=== PATIENT | male | born 1970 | race American Indian/Alaskan Native ===

== ENCOUNTER 2017-08-24 20:31 | Inpatient (IN) | payer BC ==
[2017-08-24] MEDS ORDERED: TORADOL IV ONE (20:58)
--- NOTE | 2017-08-24 21:03 | Emergency Department Report ---
Minor Respiratory <UMM HAN - Last Filed: 08/24/17 23:10> - HPI Duration: 3 Days Minor Respiratory: Yes Able to Tolerate Fluids, Yes Chest Pain, Yes Fever (101) , No Rhinorrhea, No Sore Throat, No Ear Pain, No Cough, No Sick Contacts, No Hemoptysis, No Shortness of Breath Other History: Patient is a 47-year-old male who is presenting with a right-sided chest pain. Patient states that he helped move a refrigerator several days ago and initially thought he had pulled a muscle in the right chest however he states that now he has some very mild shortness of breath and pain when he breathes. Patient had a low-grade temperature yesterday but none today. Patient also states he started having some mild sore throat yesterday which is now improved. Patient denies any headache nausea vomiting diarrhea or sore throat. <PEPE MAY - Last Filed: 08/30/17 21:48> - HPI Chief Complaint: Upper Respiratory Infection Stated Complaint: SHORT PAIN Time Seen by Provider: 08/24/17 20:58 ED Review of Systems ROS: Stated complaint: SHORT PAIN Other details as noted in HPI <UMM HAN - Last Filed: 08/24/17 23:10> ROS: Stated complaint: SHORT PAIN Other details as noted in HPI Constitutional: denies: chills, fever Eyes: denies: eye pain, eye discharge, vision change ENT: denies: ear pain, throat pain Respiratory: denies: cough, shortness of breath, wheezing Cardiovascular: denies: chest pain, palpitations Endocrine: no symptoms reported Gastrointestinal: denies: abdominal pain, nausea, diarrhea Genitourinary: denies: urgency, dysuria Musculoskeletal: denies: back pain, joint swelling, arthralgia Skin: denies: rash, lesions Neurological: denies: headache, weakness, paresthesias Psychiatric: denies: anxiety, depression Hematological/Lymphatic: denies: easy bleeding, easy bruising <PEPE MAY Last Filed: 08/30/17 21:48> ED Past Medical Hx <UMM HAN - Last Filed: 08/24/17 23:10> - Past Medical History Additional medical history: gout - Social History Smoking Status: Current Every Day Smoker Substance Use Type: None <PEPE MAY Last Filed: 08/30/17 21:48> - Medications Home Medications: Home Medications Medication Instructions Recorded Confirmed Last Taken Type Ibuprofen [Motrin 200 MG tab] 400 mg PO Q8H PRN 08/25/17 08/25/17 08/24/17 History Apixaban [Eliquis] 10 mg PO Q12HR #60 tablet 08/27/17 Unknown Rx Minor Respiratory Exam - Exam General: Vital signs noted. No distress. Alert and acting appropriately. Neurologic: Alert and oriented, no deficits. Musculoskeletal: Unremarkable. <UMM HAN - Last Filed: 08/24/17 23:10> - Exam General: Vital signs noted. No distress. Alert and acting appropriately. HEENT: Yes Moist Mucous Membranes, No Pharyngeal Erythema, No Pharyngeal Exudates, No Rhinorrhea, No Conjuctival Injection, No Frontal Tenderness, No Maxillary Tenderness Ear: Neither TM Bulge, Neither TM Erythema, Neither EAC Pain, Neither EAC Discharge Neck: Yes Supple, No Adenopathy Lungs: Yes Good Air Exchange, Yes Ronchi (right posterior base), No Wheezes, No Stridor, No Cough, No Labored Respirations, No Retractions, No Use of Accessory Muscles, No Other Abnormal Lung Sounds Heart: Yes Regular, No Murmur Abdomen: Yes Normal Bowel Sounds, No Tenderness, No Peritoneal Signs Skin: No Rash, No Edema Neurologic: Alert and oriented, no deficits. Musculoskeletal: Unremarkable. <PEPE MAY - Last Filed: 08/30/17 21:48> ED Course Vital Signs 08/24/17 20:47 Temperature 97.8 F Pulse Rate 80 Respiratory 18 Rate Blood Pressure 123/85 O2 Sat by Pulse 100 Oximetry - Reevaluation(s) Reevaluation #2: 08/24/17 22:01 Patient with elevated d-dimer, elevated white blood cell and abnormal chest x- ray. CTA and CO2 be done. Reevaluation #3: 08/24/17 23:[address] and she'll and radiologist called to inform the patient with bilateral PE with pulmonary infarct secondary to PE. Patient is stable. He is currently getting IV fluid he was started on IV sauce then empirically for infection. I spoke with Dr. May regarding patient and care of patient will be given over 2 Dr. Wall. <UMM HAN - Last Filed: 08/24/17 23:10> Vital Signs 08/24/17 20:47 Temperature 97.8 F Pulse Rate 80 Respiratory 18 Rate Blood Pressure 123/85 O2 Sat by Pulse 100 Oximetry - Reevaluation(s) Reevaluation #1: 08/24/17 21:03 Patient is a 47-year-old -[place] male who presented with right-sided chest discomfort with breathing. Patient does have some minor rhonchi in the right posterior base. X-ray will be done to rule out pneumonia. Pleuritic component patient also will have a d-dimer EKG done as well. <PEPE MAY - Last Filed: 08/30/17 21:48> ED Medical Decision Making - Lab Data Result diagrams: 08/24/17 21:04 08/24/17 21:04 <UMM HAN - Last Filed: 08/24/17 23:10> - Lab Data Result diagrams: 08/26/17 05:48 08/26/17 05:48 <PEPE MAY - Last Filed: 08/30/17 21:48> Critical care attestation.: If time is entered above; I have spent that time in minutes in the direct care of this critically ill patient, excluding procedure time. <UMM HAN - Last Filed: 08/24/17 23:10> Critical care attestation.: If time is entered above; I have spent that time in minutes in the direct care of this critically ill patient, excluding procedure time. <PEPE MAY - Last Filed: 08/30/17 21:48> ED Disposition <UMM HAN - Last Filed: 08/24/17 23:10> Is pt being admited?: Yes Does the pt Need Aspirin: No <PEPE MAY - Last Filed: 08/30/17 21:48> Clinical Impression: Pulmonary embolism and infarction Disposition: OP ADMIT IP TO THIS HOSP Condition: Stable
[2017-08-24 21:15] LABS: Basophils # (Auto) 0.1 K/mm3 (0.0-0.1); Basophils % (Auto) 0.4 % (0.0-1.8); Eosinophils # (Auto) 0.1 K/mm3 (0.0-0.4); Eosinophils % (Auto) 0.7 % (0.0-4.3); Hematocrit 42.8 % (35.5-45.6); Hemoglobin 14.1 gm/dl (11.8-15.2); Lymphocytes # (Auto) 1.6 K/mm3 (1.2-5.4); Lymphocytes % (Auto) 8.4 % (13.4-35.0); Mean Corpuscular HGB Conc 33 % (32-34); Mean Corpuscular Hemoglobin 30 pg (28-32); Mean Corpuscular Volume 91 fl (84-94); Monocytes % (Auto) 10.3 % (0.0-7.3); Platelet Count 205 K/mm3 (140-440); Red Blood Count 4.73 M/mm3 (3.65-5.03); Red Cell Distribution Width 13.5 % (13.2-15.2)
[2017-08-24 21:34] LABS: BUN/Creatinine Ratio 27; Blood Urea Nitrogen 16 mg/dL (9-20); Calcium 8.8 mg/dL (8.4-10.2); Hemolysis Index 14
--- NOTE | 2017-08-24 21:49 | XRay Report ---
FINAL REPORT PROCEDURE: XR CHEST ROUTINE 2V TECHNIQUE: PA and lateral chest radiographs were obtained. CPT 14845 HISTORY: cough COMPARISON: No prior studies are available for comparison. FINDINGS: Heart size and pulmonary vasculature appear normal. There are abnormal densities visualized in the lateral 3rd of the right lung. These appear to be visualized in the posterior aspect of the right upper lobe also in the right middle lobe superior laterally and inferiorly. These may represent multifocal infiltrates. The density located in the left upper lobe is somewhat oval measuring 3.6 x 2.2 centimeters. Linear band of atelectasis suspected in the left base. Lungs otherwise are clear. No effusions are seen. No acute bony abnormalities are visualized. IMPRESSION: Abnormal densities visualize right lung as described. Clinical correlation is recommended. If there are signs of pneumonia I would recommend treating for pneumonia and repeating the chest x-ray after adequate treatment to ensure these densities resolve and there are no underlying masses. If there is no evidence of pneumonia I would consider CT of the chest to ensure no pulmonary nodules are present.
[2017-08-24] MEDS ORDERED: NACL 0.9% 1000 ML 1,000 ML IV ONE (22:18)
[2017-08-24] MEDS ORDERED: XOPENEX IH ONE (22:30)
[2017-08-24] MEDS ORDERED: ATROVENT IH ONE (22:30)
[2017-08-24] MEDS ORDERED: ZOSYN/NS 4.5GM/100ML 4.5 GM/100 ML VIAL IV SCH (23:00)
--- NOTE | 2017-08-24 23:14 | Cat Scan Report ---
FINAL REPORT PROCEDURE: CT ANGIO CHEST TECHNIQUE: Computerized tomographic angiography of the chest was performed during the IV injection of iodinated nonionic contrast including image processing. The image data was postprocessed using 2-dimensional multiplanar reformatted (MPR) and 3-dimensional (MIP and/or volume rendered) techniques. HISTORY: sob/cp COMPARISON: No prior studies are available for comparison. FINDINGS: Pulmonary outflow tract, right and left main pulmonary arteries and their proximal branches: There are moderate-sized filling defects visualized in the proximal end of the right lower lobe pulmonary artery and in several of their branches extending more peripherally. Similar finding seen in the right upper lobe branches and also in the right middle lobe. Small to moderate filling defects visualized in branches of the left lower lobe pulmonary artery and also in the lingula. Pericardium: No evidence of pericardial effusion. Thoracic aorta: No evidence of aneurysmal dilatation or dissection. Coronary arteries: Are unremarkable. Mediastinum and hilar regions: Nonspecific subcentimeter lymph nodes are visualized. No pathologically enlarged lymph nodes or masses are identified. Lung Maloney: There is dense consolidation in the central aspect of the right middle lobe extending superiorly and anteriorly. There is a pleural-based peripheral density in the superior segment of the right lower lobe posteriorly extending over approximately 5.2 centimeters. Given the multiple moderate-sized pulmonary emboli visualized the appearance is suggestive of pulmonary infarctions. No effusions are seen. There also a linear band of increased density in the right lower lobe posteriorly inferiorly. Linear bands of atelectasis are also seen in the left lung base. Upper abdomen: No acute or focal abnormality is seen. Other: None IMPRESSION: Moderate volume of pulmonary emboli seen on the right as described. Small to moderate volume of pulmonary embolize seen on the left as described. Peripheral parenchymal densities in the right lung as described suggest pulmonary infarction related to the pulmonary emboli. Critical value: These findings were discussed in detail with NIKOLAS Crump on 08/24/2017 at 11:02 p.m. Eastern standard time. She informs me the attending physician will be notified immediately.
--- NOTE | 2017-08-24 23:38 | Emergency Department Report ---
ED Shortness of Breath HPI - General Chief Complaint: Upper Respiratory Infection Stated Complaint: SHORT PAIN Time Seen by Provider: 08/24/17 20:58 Source: patient Mode of arrival: Ambulatory Limitations: No Limitations - History of Present Illness Initial Comments: This is a pleasant 47-year-old gentleman who is a smoker who apparently began having right-sided chest pain roughly 4 days ago. He states that he was helping a friend move a refrigerator several days ago and thought that he might have pulled a muscle. He states that the sensation in the right anterior lower chest feels like gas. He did not think much of it until he began to have a low- grade temperature yesterday. He also states that he had a sore throat but this Better. His left calf muscle has been sore over the past several days as well. 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 She states that it is difficult to find his pulses in his feet bilaterally. MD Complaint: shortness of breath -: Gradual, days(s) (4) Radiation: back Severity: moderate Consistency: constant Improves With: nothing Worsens With: nothing Associated Symptoms: fever, cough Treatments Prior to Arrival: none - Related Data Allergies Allergy/AdvReac Type Severity Reaction Status Date / Time No Known Allergies Allergy Verified 08/24/17 22:23 ED Review of Systems ROS: Stated complaint: SHORT PAIN Other details as noted in HPI Constitutional: fever. denies: chills Eyes: denies: eye pain, eye discharge, vision change ENT: denies: ear pain, throat pain Respiratory: cough, shortness of breath Cardiovascular: denies: chest pain, palpitations Endocrine: no symptoms reported Gastrointestinal: denies: abdominal pain, nausea, diarrhea Genitourinary: denies: urgency, dysuria Musculoskeletal: denies: back pain, joint swelling, arthralgia Skin: denies: rash, lesions Neurological: denies: headache, weakness, paresthesias Psychiatric: denies: anxiety, depression Hematological/Lymphatic: denies: easy bleeding, easy bruising ED Past Medical Hx - Past Medical History Additional medical history: gout - Social History Smoking Status: Current Every Day Smoker Substance Use Type: None ED Physical Exam - General Limitations: No Limitations General appearance: alert, in no apparent distress - Head Head exam: Present: atraumatic, normocephalic - Eye Eye exam: Present: normal appearance, PERRL, EOMI - ENT ENT exam: Present: normal exam - Neck Neck exam: Present: normal inspection - Respiratory Respiratory exam: Present: other (decreased breath sounds in the bases bilaterally) - Cardiovascular Cardiovascular Exam: Present: regular rate, normal rhythm, normal heart sounds - GI/Abdominal GI/Abdominal exam: Present: soft, normal bowel sounds - Extremities Exam Extremities exam: Present: normal inspection. Absent: pedal edema, joint swelling - Back Exam Back exam: Present: normal inspection - Neurological Exam Neurological exam: Present: alert, oriented X3, CN II-XII intact - Psychiatric Psychiatric exam: Present: normal affect, normal mood - Skin Skin exam: Present: warm, dry, intact, normal color ED Course Vital Signs 08/24/17 08/24/17 08/24/17 20:47 22:39 23:04 Temperature 97.8 F Pulse Rate 80 Pulse Rate [ 70 Throughout] Respiratory 18 16 Rate Respiratory 18 Rate [ Throughout] Blood Pressure 123/85 O2 Sat by Pulse 100 Oximetry 08/24/17 23:54 Temperature Pulse Rate Pulse Rate [ 75 Throughout] Respiratory Rate Respiratory 18 Rate [ Throughout] Blood Pressure O2 Sat by Pulse Oximetry - Reevaluation(s) Reevaluation #1: 08/24/17 23:49 The patient was seen in fast track and was suspected to have some type of infection. However it became clear that the patient developed pulmonary emboli once his CT scan was completed. I put a page into Dr. Recinos and we will began to anti-coagulated the patient with heparin.. ED Medical Decision Making - Lab Data Result diagrams: 08/24/17 21:04 08/24/17 21:04 Critical care attestation.: If time is entered above; I have spent that time in minutes in the direct care of this critically ill patient, excluding procedure time. ED Disposition Clinical Impression: Pulmonary embolism and infarction Disposition: OP ADMIT IP TO THIS HOSP Is pt being admited?: Yes Does the pt Need Aspirin: No Condition: Stable Referrals: PRIMARY CARE,MD [Primary Care Provider] - 3-5 Days
[2017-08-25] MEDS ORDERED: HEPARIN 10,000 UNITS/10 ML IV ONE (00:08)
[2017-08-25 00:27] LABS: INR 0.94 (0.87-1.13)
[2017-08-25] MEDS ORDERED: ZOFRAN IV PRN (01:14)
[2017-08-25] MEDS ORDERED: TYLENOL PO PRN (01:14)
[2017-08-25] MEDS ORDERED: MORPHINE IV PRN (01:16)
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
[2017-08-25] MEDS: LOVENOX SUB-Q SCH ×2 (02:06→14:39)
[2017-08-25] MEDS ORDERED: MORPHINE ONE (02:28)
[2017-08-25] MEDS ORDERED: ZOFRAN ONE (02:32)
[2017-08-25] MEDS: MORPHINE IV PRN ×2 (02:40→08:36)
--- NOTE | 2017-08-25 14:52 | Progress Note ---
Assessment and Plan Assessment and plan: This is a pleasant 47-year-old gentleman who is a smoker who apparently began having right-sided chest pain roughly 4 days ago. He states that he was helping a friend move a refrigerator several days ago and thought that he might have pulled a muscle. He states that the sensation in the right anterior lower chest feels like gas. He did not think much of it until he began to have a low- grade temperature yesterday. He also states that he had a sore throat but this Better. His left calf muscle has been sore over the past several days as well. 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 She states that it is difficult to find his pulses in his feet bilaterally. Pulmonary Emboli with infarction Left lower ext DVT Acute Hypoxic Respiratory failure Tobacco use disorder Plan Doubt Infection. Will stop abx and monitor. Continue full dose lovenox,IV levaquin, morphine Will likely need evaluation by Vascular in respect to the noted lower ext stenosis, Per , work up ongoing. Follow cultures DVt prophalaxis Plan of care discussed with patient and spouse History Interval history: Patient seen and examined, still with mild respiratory distress but stable. speaking in complete sentences Hospitalist Physical - Physical exam Narrative exam: Gen. appearance: Patient lying in bed in no acute distress HEENT: Normocephalic/atraumatic, pupils equal round reactive to light, extra occular movement intact, no scleral icterus, no JVD or thyromegaly or nodule, neck is supple, mucous membrane moist, no erythema or exudate Heart: S1-S2, regular rate and rhythm Lungs: Clear to auscultation bilateral breathing comfortable Abdomen: Positive bowel sounds, nontender, nondistended, no organomegaly Extremities: No edema, cyanosis, clubbing Neuro:: Oriented 3 , cranial nerves II-12 intact, speech, motor intact Skin: healed ulceration scare left toe, nodules, warm dry - Constitutional Vitals: Temp Pulse Resp BP Pulse Ox 99.1 F 72 20 126/80 98 08/25/17 11:19 08/25/17 11:37 08/25/17 11:19 08/25/17 11:19 08/25/17 11:19 Results - Labs CBC & Chem 7: 08/24/17 21:04 08/24/17 21:04 Labs: Laboratory Last Values WBC 19.0 K/mm3 (4.5-11.0) H 08/24/17 21:04 RBC 4.73 M/mm3 (3.65-5.03) 08/24/17 21:04 Hgb 14.1 gm/dl (11.8-15.2) 08/24/17 21:04 Hct 42.8 % (35.5-45.6) 08/24/17 21:04 MCV 91 fl (84-94) 08/24/17 21:04 MCH 30 pg (28-32) 08/24/17 21:04 MCHC 33 % (32-34) 08/24/17 21:04 RDW 13.5 % (13.2-15.2) 08/24/17 21:04 Plt Count 205 K/mm3 (140-440) 08/24/17 21:04 Lymph % (Auto) 8.4 % (13.4-35.0) L 08/24/17 21:04 Wirt % (Auto) 10.3 % (0.0-7.3) H 08/24/17 21:04 Eos % (Auto) 0.7 % (0.0-4.3) 08/24/17 21:04 Baso % (Auto) 0.4 % (0.0-1.8) 08/24/17 21:04 Lymph # 1.6 K/mm3 (1.2-5.4) 08/24/17 21:04 Wirt # 2.0 K/mm3 (0.0-0.8) H 08/24/17 21:04 Eos # 0.1 K/mm3 (0.0-0.4) 08/24/17 21:04 Baso # 0.1 K/mm3 (0.0-0.1) 08/24/17 21:04 Seg Neutrophils % 80.2 % (40.0-70.0) H 08/24/17 21:04 Seg Neutrophils # 15.2 K/mm3 (1.8-7.7) H 08/24/17 21:04 PT 13.0 Sec. (12.2-14.9) 08/25/17 00:02 INR 0.94 (0.87-1.13) 08/25/17 00:02 APTT 26.0 Sec. (24.2-36.6) 08/25/17 00:02 D-Dimer 3448.58 ng/mlDDU (0-234) H 08/24/17 21:04 Sodium 141 mmol/L (137-145) 08/24/17 21:04 Potassium 4.0 mmol/L (3.6-5.0) 08/24/17 21:04 Chloride 100.4 mmol/L (98-107) 08/24/17 21:04 Carbon Dioxide 27 mmol/L (22-30) 08/24/17 21:04 Anion Gap 18 mmol/L 08/24/17 21:04 BUN 16 mg/dL (9-20) 08/24/17 21:04 Creatinine 0.6 mg/dL (0.8-1.5) L 08/24/17 21:04 Estimated GFR > 60 ml/min 08/24/17 21:04 BUN/Creatinine Ratio 27 % 08/24/17 21:04 Glucose 136 mg/dL (75-100) H 08/24/17 21:04 Lactic Acid 1.00 mmol/L (0.7-2.0) 08/24/17 23:03 Calcium 8.8 mg/dL (8.4-10.2) 08/24/17 21:04 Troponin T < 0.010 ng/mL (0.00-0.029) 08/24/17 23:03 - Imaging and Cardiology CT scan - chest: image reviewed (pulmonary embolisim)
[2017-08-26] MEDS: LOVENOX SUB-Q SCH ×2 (02:13→14:28)
[2017-08-26] MEDS: PERCOCET 5/325 PO PRN ×3 (02:15→21:03)
[2017-08-26 06:17] LABS: Basophils # (Auto) 0.1 K/mm3 (0.0-0.1); Basophils % (Auto) 0.7 % (0.0-1.8); Eosinophils # (Auto) 0.2 K/mm3 (0.0-0.4); Eosinophils % (Auto) 1.5 % (0.0-4.3); Hematocrit 42.1 % (35.5-45.6); Hemoglobin 13.6 gm/dl (11.8-15.2); Lymphocytes % (Auto) 15.5 % (13.4-35.0); Mean Corpuscular HGB Conc 32 % (32-34); Mean Corpuscular Hemoglobin 29 pg (28-32); Mean Corpuscular Volume 91 fl (84-94); Monocytes # (Auto) 1.8 K/mm3 (0.0-0.8); Platelet Count 203 K/mm3 (140-440); Red Blood Count 4.62 M/mm3 (3.65-5.03); Red Cell Distribution Width 13.9 % (13.2-15.2)
[2017-08-26 06:40] LABS: BUN/Creatinine Ratio 17; Blood Urea Nitrogen 12 mg/dL (9-20); Calcium 8.8 mg/dL (8.4-10.2); Hemolysis Index 9
--- NOTE | 2017-08-26 10:36 | Progress Note ---
Assessment and Plan Assessment and plan: This is a pleasant 47-year-old gentleman who is a smoker who apparently began having right-sided chest pain roughly 4 days ago. He states that he was helping a friend move a refrigerator several days ago and thought that he might have pulled a muscle. He states that the sensation in the right anterior lower chest feels like gas. He did not think much of it until he began to have a low- grade temperature yesterday. He also states that he had a sore throat but this Better. His left calf muscle has been sore over the past several days as well. 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 She states that it is difficult to find his pulses in his feet bilaterally. Pulmonary Emboli with infarction Left lower ext DVT Acute Hypoxic Respiratory failure Tobacco use disorder Plan Doubt Infection. Will stop abx and monitor. home o2 eval Check ECHO-awiaiting result Continue full dose lovenox,IV, morphine Will likely need evaluation by Vascular in respect to the noted lower ext stenosis, Per , work up ongoing. Follow cultures DVt prophylaxis Plan of care discussed with patient and spouse History Interval history: Patient seen and examined, no new distress noted today. speaking in complete sentences Hospitalist Physical - Physical exam Narrative exam: Gen. appearance: Patient lying in bed in no acute distress HEENT: Normocephalic/atraumatic, pupils equal round reactive to light, extra occular movement intact, no scleral icterus, no JVD or thyromegaly or nodule, neck is supple, mucous membrane moist, no erythema or exudate Heart: S1-S2, regular rate and rhythm Lungs: Clear to auscultation bilateral breathing comfortable Abdomen: Positive bowel sounds, nontender, nondistended, no organomegaly Extremities: No edema, cyanosis, clubbing Neuro:: Oriented 3 , cranial nerves II-12 intact, speech, motor intact Skin: healed ulceration scare left toe, nodules, warm dry - Constitutional Vitals: Temp Pulse Resp BP Pulse Ox 98.4 F 88 20 117/81 98 08/26/17 08:54 08/26/17 08:54 08/26/17 08:54 08/26/17 08:54 08/26/17 08:54 Results - Labs CBC & Chem 7: 08/26/17 05:48 08/26/17 05:48 Labs: Laboratory Last Values WBC 13.0 K/mm3 (4.5-11.0) H 08/26/17 05:48 RBC 4.62 M/mm3 (3.65-5.03) 08/26/17 05:48 Hgb 13.6 gm/dl (11.8-15.2) 08/26/17 05:48 Hct 42.1 % (35.5-45.6) 08/26/17 05:48 MCV 91 fl (84-94) 08/26/17 05:48 MCH 29 pg (28-32) 08/26/17 05:48 MCHC 32 % (32-34) 08/26/17 05:48 RDW 13.9 % (13.2-15.2) 08/26/17 05:48 Plt Count 203 K/mm3 (140-440) 08/26/17 05:48 Lymph % (Auto) 15.5 % (13.4-35.0) 08/26/17 05:48 Tompkins % (Auto) 14.0 % (0.0-7.3) H 08/26/17 05:48 Eos % (Auto) 1.5 % (0.0-4.3) 08/26/17 05:48 Baso % (Auto) 0.7 % (0.0-1.8) 08/26/17 05:48 Lymph # 2.0 K/mm3 (1.2-5.4) 08/26/17 05:48 Tompkins # 1.8 K/mm3 (0.0-0.8) H 08/26/17 05:48 Eos # 0.2 K/mm3 (0.0-0.4) 08/26/17 05:48 Baso # 0.1 K/mm3 (0.0-0.1) 08/26/17 05:48 Seg Neutrophils % 68.3 % (40.0-70.0) 08/26/17 05:48 Seg Neutrophils # 8.9 K/mm3 (1.8-7.7) H 08/26/17 05:48 PT 13.0 Sec. (12.2-14.9) 08/25/17 00:02 INR 0.94 (0.87-1.13) 08/25/17 00:02 APTT 26.0 Sec. (24.2-36.6) 08/25/17 00:02 D-Dimer 3448.58 ng/mlDDU (0-234) H 08/24/17 21:04 Sodium 139 mmol/L (137-145) 08/26/17 05:48 Potassium 4.5 mmol/L (3.6-5.0) 08/26/17 05:48 Chloride 99.3 mmol/L (98-107) 08/26/17 05:48 Carbon Dioxide 30 mmol/L (22-30) 08/26/17 05:48 Anion Gap 14 mmol/L 08/26/17 05:48 BUN 12 mg/dL (9-20) 08/26/17 05:48 Creatinine 0.7 mg/dL (0.8-1.5) L 08/26/17 05:48 Estimated GFR > 60 ml/min 08/26/17 05:48 BUN/Creatinine Ratio 17 % 08/26/17 05:48 Glucose 101 mg/dL (75-100) H 08/26/17 05:48 Lactic Acid 1.00 mmol/L (0.7-2.0) 08/24/17 23:03 Calcium 8.8 mg/dL (8.4-10.2) 08/26/17 05:48 Troponin T < 0.010 ng/mL (0.00-0.029) 08/24/17 23:03
[2017-08-27] MEDS: LOVENOX SUB-Q SCH (03:19)
[2017-08-27 09:51] VITALS: BP 121/84
--- NOTE | 2017-08-27 10:59 | Discharge Summary ---
Providers - Providers Date of Admission: 08/25/17 02:07 Attending physician: KATI WINSLOW MD Primary care physician: RESULTS TECHNICIAN Hospitalization Condition: Stable Hospital course: This is a pleasant 47-year-old gentleman who is a smoker who apparently began having right-sided chest pain roughly 4 days ago. He states that he was helping a friend move a refrigerator several days ago and thought that he might have pulled a muscle. He states that the sensation in the right anterior lower chest feels like gas. He did not think much of it until he began to have a low- grade temperature yesterday. He also states that he had a sore throat but this Better. His left calf muscle has been sore over the past several days as well. 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 She states that it is difficult to find his pulses in his feet bilaterally. Pulmonary Emboli with infarction Left lower ext DVT Acute Hypoxic Respiratory failure Tobacco use disorder Plan Doubt Infection. Will stop abx and monitor. home o2 eval Check ECHO-awiaiting result Continue full dose lovenox,IV, morphine Will likely need evaluation by Vascular in respect to the noted lower ext stenosis, Per , work up ongoing. Follow cultures DVt prophylaxis Plan of care discussed with patient and spouse Core Measure Documentation - Palliative Care Palliative Care/ Comfort Measures: Not Applicable Exam - Constitutional Vitals: Temp Pulse Resp BP Pulse Ox 97.7 F 94 H 20 121/84 98 08/27/17 07:44 08/27/17 07:44 08/27/17 07:44 08/27/17 07:44 08/27/17 07:44 Plan Activity: advance as tolerated, fall precautions Diet: regular Special Instructions: record daily BP diary Follow up with: PRIMARY CARE, [Primary Care Provider] - 3-5 Days Prescriptions: Apixaban [Eliquis] 10 mg PO Q12HR #60 tablet
[2017-08-27] MEDS ORDERED: ELIQUIS PO SCH (11:00)
--- NOTE | 2017-08-29 12:13 | Vascular Lab Report ---
LOWER EXTREMITY VENOUS DUPLEX: REASON FOR EXAM: Deep venous thrombosis. COMMENTS ON THE RIGHT: All veins visualized are freely compressible without evidence of internal echogenicity. Flow is spontaneous and phasic throughout. COMMENTS ON THE LEFT: Acute thrombus is noted in the left popliteal vein. The remaining veins visualized are freely compressible without evidence of internal echogenicity. Spontaneous and phasic flow is present proximally. IMPRESSION: Acute deep venous thrombosis of the left popliteal vein. No evidence of acute deep venous thrombosis in the right lower extremity.
== END 2017-08-27 14:10 | disposition home or self-care (01) | DRG 175 ==
LOC: ED 20:31 → 4A 08-25 02:07
PROVIDERS: ADMIT Internal Medicine; ATTEND Internal Medicine
DX: I26.99 Other pulmonary embolism without acute cor pulmonale (principal); J96.01 Acute respiratory failure with hypoxia; I82.432 Acute embolism and thrombosis of left popliteal vein; F17.200 Nicotine dependence, unspecified, uncomplicated; M10.9 Gout, unspecified; Z79.899 Other long term (current) drug therapy; Z82.49 Family history of ischemic heart disease and other diseases of the circulatory system
CPT/HCPCS: 36415; 71046; 71275; 80048; 82140; 84484; 85025; 85379; 85610; 85730; 87040; 93005; 93010; 93306; 93970; 94640; 94760; 96361; 96365; 96375; J1644; J1650; J1885; J2270; J2405; J2543; J7030; Q9967